=== PATIENT | female | born 1960 | race African-American/Black ===

== ENCOUNTER 2022-04-05 22:22 | Observation (INO) | payer BC, OTHER ==
[2022-04-06 00:35] LABS: BASO % 0.6 % (0-2.0); EOS % 2.5 % (0-4.5); HEMATOCRIT 42.9 % (32.4-45.2); HEMOGLOBIN 14.7 GM/dL (10.7-15.3); LYMPH % 36.5 % (8-40); MCH 28.7 pg (25.7-33.7); MCHC 34.3 g/dl (32.0-36.0); MEAN CELL VOLUME 83.6 fl (80-96); MEAN PLT VOLUME 8.2 fl (7.5-11.1); MONO % 5.3 % (3.8-10.2); NEUT % 55.1 % (42.8-82.8); PLATELET COUNT 254 10^3/uL (134-434); RBC 5.14 M/mm3 (3.60-5.2); RDW 13.3 % (11.6-15.6); WHITE BLOOD COUNT 9.7 K/mm3 (4.0-10.0)
[2022-04-06 01:07] LABS: CALCIUM 10.1 mg/dL (8.5-10.1)
[2022-04-06 01:09] LABS: ALBUMIN 4.1 g/dl (3.4-5.0); BLOOD UREA NITROGEN 14.9 mg/dL (7-18)
[2022-04-06 01:12] LABS: CREATININE 1.1 mg/dL (0.55-1.3)
[2022-04-06 01:13] LABS: BILIRUBIN,TOTAL 0.8 mg/dL (0.2-1)
[2022-04-06 03:11] LABS: CALCIUM 9.8 mg/dL (8.5-10.1)
[2022-04-06 03:12] LABS: BLOOD UREA NITROGEN 14.8 mg/dL (7-18)
[2022-04-06 03:15] LABS: CREATININE 0.9 mg/dL (0.55-1.3)
[2022-04-06] MEDS ORDERED: ENOXAPARIN NA (PORCINE) 40 MG/0.4 ML DISP.SYRIN SQ ONE (09:50)
[2022-04-06] MEDS ORDERED: LISINOPRIL 5 MG TABLET ONE (09:50)
[2022-04-06] MEDS ORDERED: LISINOPRIL 5 MG TABLET PO SCH (10:00)
[2022-04-06] MEDS: ENOXAPARIN NA (PORCINE) 40 MG/0.4 ML DISP.SYRIN SQ SCH (10:45)
[2022-04-06] MEDS: INSULIN SLIDING SCALE (NOVOLOG) 1 VIAL SQ SCH ×3 (11:55→21:45)
[2022-04-06] MEDS: LOSARTAN POTASSIUM 50 MG TABLET PO SCH (12:55)
[2022-04-06 13:21] LABS: URINE APPEARANCE CLEAR; URINE BILIRUBIN NEGATIVE (NEGATIVE); URINE COLOR YELLOW; URINE GLUCOSE (UA) 1+ (NEGATIVE); URINE KETONE NEGATIVE (NEGATIVE); URINE LEUK ESTERASE NEGATIVE (NEGATIVE); URINE NITRITE NEGATIVE (NEGATIVE); URINE PROTEIN NEGATIVE (NEGATIVE); URINE UROBILINOGEN 0.2 mg/dL (0.2-1.0)
[2022-04-07 08:12] LABS: BASO % 0.4 % (0-2.0); EOS % 2.6 % (0-4.5); HEMATOCRIT 38.1 % (32.4-45.2); HEMOGLOBIN 13.1 GM/dL (10.7-15.3); LYMPH % 50.2 % (8-40); MCH 28.9 pg (25.7-33.7); MCHC 34.5 g/dl (32.0-36.0); MEAN CELL VOLUME 83.9 fl (80-96); MEAN PLT VOLUME 8.3 fl (7.5-11.1); MONO % 5.8 % (3.8-10.2); PLATELET COUNT 226 10^3/uL (134-434); RBC 4.54 M/mm3 (3.60-5.2); RDW 13.1 % (11.6-15.6); WHITE BLOOD COUNT 7.4 K/mm3 (4.0-10.0)
[2022-04-07] MEDS: INSULIN SLIDING SCALE (NOVOLOG) 1 VIAL SQ SCH ×4 (08:20→22:35)
[2022-04-07 08:24] LABS: CALCIUM 8.9 mg/dL (8.5-10.1)
[2022-04-07 08:26] LABS: ALBUMIN 3.4 g/dl (3.4-5.0); BLOOD UREA NITROGEN 18.5 mg/dL (7-18)
[2022-04-07 08:28] LABS: CREATININE 0.7 mg/dL (0.55-1.3)
[2022-04-07 08:30] LABS: TOT PROT 6.2 g/dl (6.4-8.2)
[2022-04-07 08:31] LABS: BILIRUBIN,TOTAL 0.6 mg/dL (0.2-1)
[2022-04-07] MEDS ORDERED: LOSARTAN POTASSIUM 50 MG TABLET ONE (09:46)
[2022-04-07] MEDS ORDERED: ENOXAPARIN NA (PORCINE) 40 MG/0.4 ML DISP.SYRIN SQ ONE (09:46)
[2022-04-07] MEDS: ENOXAPARIN NA (PORCINE) 40 MG/0.4 ML DISP.SYRIN SQ SCH (10:28)
[2022-04-07] MEDS: LOSARTAN POTASSIUM 50 MG TABLET PO SCH (10:28)
[2022-04-07] MEDS: INSULIN (LEVEMIR) 100 UNITS/ML UNITS SQ SCH ×2 (15:20→22:36)
[2022-04-07] MEDS: HYDROCHLOROTHIAZIDE 25 MG TABLET (FP) PO SCH (15:25)
[2022-04-07] MEDS ORDERED: HYDROCHLOROTHIAZIDE 25 MG TABLET (FP) ONE (17:17)
[2022-04-08] MEDS ORDERED: INSULIN (LEVEMIR) 100 UNITS/ML UNITS SQ SCH ×3 (07:23→08:00)
[2022-04-08 07:53] LABS: BASO % 0.4 % (0-2.0); EOS % 2.8 % (0-4.5); HEMATOCRIT 38.6 % (32.4-45.2); HEMOGLOBIN 13.6 GM/dL (10.7-15.3); LYMPH % 52.7 % (8-40); MCHC 35.2 g/dl (32.0-36.0); MEAN CELL VOLUME 82.4 fl (80-96); NEUT % 38.1 % (42.8-82.8); PLATELET COUNT 237 10^3/uL (134-434); RBC 4.68 M/mm3 (3.60-5.2); RDW 13.2 % (11.6-15.6); WHITE BLOOD COUNT 7.1 K/mm3 (4.0-10.0)
[2022-04-08 08:15] LABS: CALCIUM 9.4 mg/dL (8.5-10.1)
[2022-04-08 08:16] LABS: ALBUMIN 3.6 g/dl (3.4-5.0); BLOOD UREA NITROGEN 19.4 mg/dL (7-18)
[2022-04-08 08:19] LABS: CREATININE 0.7 mg/dL (0.55-1.3)
[2022-04-08 08:20] LABS: BILIRUBIN,TOTAL 0.5 mg/dL (0.2-1); TOT PROT 6.5 g/dl (6.4-8.2)
[2022-04-08] MEDS: INSULIN (LEVEMIR) 100 UNITS/ML UNITS SQ SCH (08:27)
[2022-04-08] MEDS: INSULIN SLIDING SCALE (NOVOLOG) 1 VIAL SQ SCH ×2 (08:30→12:59)
[2022-04-08] MEDS ORDERED: HYDROCHLOROTHIAZIDE 25 MG TABLET (FP) ONE (09:43)
[2022-04-08] MEDS ORDERED: ENOXAPARIN NA (PORCINE) 40 MG/0.4 ML DISP.SYRIN SQ ONE (09:43)
[2022-04-08] MEDS ORDERED: LOSARTAN POTASSIUM 50 MG TABLET ONE (09:43)
[2022-04-08] MEDS: LOSARTAN POTASSIUM 50 MG TABLET PO SCH (11:00)
[2022-04-08] MEDS: ENOXAPARIN NA (PORCINE) 40 MG/0.4 ML DISP.SYRIN SQ SCH (11:00)
[2022-04-08] MEDS: HYDROCHLOROTHIAZIDE 25 MG TABLET (FP) PO SCH (11:00)
[2022-04-08 12:46] LABS: MAGNESIUM 2.1 mg/dL (1.8-2.4)
[2022-04-08 12:50] LABS: PHOSPHOROUS 4.2 mg/dL (2.5-4.9)
[2022-04-08] MEDS: INSULIN (NOVOLOG) ASPART 100 UNITS/ML 10ML VIAL SQ SCH ×2 (12:59→18:02)
[2022-04-08 14:17] VITALS: TEMP 98.5; BMI 27.8
[2022-04-08] MEDS ORDERED: INSULIN SLIDING SCALE (NOVOLOG) 1 VIAL SQ SCH (16:30)
[2022-04-08 19:05] VITALS: BP 151/81; PULSE 73; RESP 18
[2022-04-09] MEDS ORDERED: sitaGLIPtin PHOSPHATE 50 MG TABLET PO SCH (07:00)
[2022-04-09] MEDS ORDERED: INSULIN (LEVEMIR) 100 UNITS/ML UNITS SQ SCH (07:00)
[2022-04-09] MEDS ORDERED: metFORMIN HCL 500 MG TABLET (FP) PO SCH (07:00)
[2022-04-09] MEDS ORDERED: LOSARTAN POTASSIUM 50 MG TABLET PO SCH (10:00)
[2022-04-09] MEDS ORDERED: ENOXAPARIN NA (PORCINE) 40 MG/0.4 ML DISP.SYRIN SQ SCH (10:00)
[2022-04-09] MEDS ORDERED: HYDROCHLOROTHIAZIDE 25 MG TABLET (FP) PO SCH (10:00)
== END 2022-04-08 21:05 | disposition home or self-care (01) ==
LOC: JER 22:22 → UNDOADMOB 04-06 06:48 → JERBED 04-06 06:48 → OBSVTOIN 04-06 08:31 → INTOOBSV 04-06 08:31 → JERBED 04-06 17:49 → J5S 04-08 12:58
PROVIDERS: ADMIT Internal Medicine; ATTEND Internal Medicine
PROC: 3E023GC Introduction of Other Therapeutic Substance into Muscle, Percutaneous Approach (ICD-10-PCS; principal; 2022-04-06)
PROC: 3E013VG Introduction of Insulin into Subcutaneous Tissue, Percutaneous Approach (ICD-10-PCS; 2022-04-06)
DX: S09.90XA Unspecified injury of head, initial encounter (principal); I25.10 Atherosclerotic heart disease of native coronary artery without angina pectoris; E11.9 Type 2 diabetes mellitus without complications; I10 Essential (primary) hypertension; R42 Dizziness and giddiness; W18.39XA Other fall on same level, initial encounter; Y93.89 Activity, other specified; Y92.89 Other specified places as the place of occurrence of the external cause; M25.731 Osteophyte, right wrist; Z51.81 Encounter for therapeutic drug level monitoring
CPT/HCPCS: 36415; 70450-TC; 71046-TC-FY; 80048; 80053; 80061; 81003; 82962; 83036; 83735; 84100; 84439; 84443; 84484; 85025; 87086; 93005; 93010; 93306-TC; 93880-TC; 99285-25; C9803-CS; G0378; U0003; U0005

== ENCOUNTER 2023-12-05 22:35 | Emergency (ER) | payer BC ==
[2023-12-05 23:01] VITALS: BP 162/81; PULSE 75; RESP 20; TEMP 98.1; BMI 27.8
[2023-12-05] MEDS ORDERED: diphenhydrAMINE HCL 25 MG CAPSULE (FP) PO ONE (23:54)
[2023-12-06] MEDS: diphenhydrAMINE HCL 25 MG CAPSULE (FP) PO ONE (00:03)
== END 2023-12-06 00:18 | disposition home or self-care (01) ==
LOC: JER 22:35
DX: L50.9 Urticaria, unspecified (principal); L29.9 Pruritus, unspecified; R21 Rash and other nonspecific skin eruption
CPT/HCPCS: 99283-25

== ENCOUNTER 2024-03-31 07:35 | Observation (INO) | payer BC ==
[2024-03-31 08:50] LABS: BASO % 1.2 % (0-2.0); EOS % 2.4 % (0-4.5); HEMATOCRIT 42.4 % (32.4-45.2); HEMOGLOBIN 14.5 GM/dL (10.7-15.3); LYMPH % 39.9 % (8-40); MCHC 34.2 g/dl (32.0-36.0); MEAN CELL VOLUME 84.9 fl (80-96); MEAN PLT VOLUME 8.1 fl (7.5-11.1); MONO % 4.7 % (3.8-10.2); NEUT % 51.8 % (42.8-82.8); PLATELET COUNT 227 10^3/uL (134-434); RBC 4.99 M/mm3 (3.60-5.2); RDW 13.9 % (11.6-15.6); WHITE BLOOD COUNT 7.9 K/mm3 (4.0-10.0)
[2024-03-31 08:51] LABS: PH,URINE 5.5 (5.0-8.0); URINE APPEARANCE CLEAR; URINE BILIRUBIN NEGATIVE (NEGATIVE); URINE COLOR YELLOW; URINE GLUCOSE (UA) 3+ (NEGATIVE); URINE KETONE NEGATIVE (NEGATIVE); URINE LEUK ESTERASE NEGATIVE (NEGATIVE); URINE NITRITE NEGATIVE (NEGATIVE); URINE PROTEIN NEGATIVE (NEGATIVE); URINE UROBILINOGEN 0.2 mg/dL (0.2-1.0)
[2024-03-31 08:51] LABS: INR 1.04 (0.83-1.09); PROTHROMBIN TIME (PATIENT) 11.7 SEC (9.7-13.0)
[2024-03-31 08:54] LABS: ACTIVATED PTT 33.1 SECONDS (25.2-36.5)
[2024-03-31 09:09] LABS: POTASSIUM 4.2 mmol/L (3.5-5.1)
[2024-03-31 09:11] LABS: ALBUMIN 3.7 g/dl (3.4-5.0); CALCIUM 9.6 mg/dL (8.5-10.1)
[2024-03-31 09:12] LABS: BLOOD UREA NITROGEN 19.5 mg/dL (7-18)
[2024-03-31 09:14] LABS: CREATININE 0.9 mg/dL (0.55-1.3)
[2024-03-31 09:15] LABS: PHOSPHOROUS 3.1 mg/dL (2.5-4.9); TOT PROT 6.9 g/dl (6.4-8.2)
[2024-03-31 09:16] LABS: BILIRUBIN,TOTAL 0.6 mg/dL (0.2-1)
[2024-03-31] MEDS ORDERED: ATORVASTATIN CA 40 MG TABLET (FP) ONE (12:18)
[2024-03-31] MEDS ORDERED: ASPIRIN 81 MG CHEWABLE TABLETS ONE (12:18)
[2024-03-31] MEDS: ATORVASTATIN CA 40 MG TABLET (FP) PO ONE (12:22)
[2024-03-31] MEDS: ASPIRIN 81 MG CHEWABLE TABLETS PO ONE (12:22)
[2024-03-31 14:41] VITALS: BMI 26.6
[2024-03-31] MEDS: ROSUVASTATIN CA 20 MG TABLET PO SCH (21:40)
[2024-04-01] MEDS: ASPIRIN 81 MG CHEWABLE TABLETS PO SCH (11:00)
[2024-04-01] MEDS: HYDROCHLOROTHIAZIDE 12.5 MG CAPSULE (FP) PO SCH (11:00)
[2024-04-01] MEDS: LOSARTAN POTASSIUM 50 MG TABLET PO SCH (11:00)
[2024-04-01] MEDS: CLOPIDOGREL BISULFATE 75 MG TABLET (FP) PO SCH (21:57)
[2024-04-02] MEDS: ASPIRIN COATED 81 MG TABLET.EC PO SCH (09:38)
[2024-04-02 09:40] VITALS: RESP 18
[2024-04-02 15:40] VITALS: BP 154/66; PULSE 61; TEMP 98.1
== END 2024-04-02 18:47 | disposition home or self-care (01) ==
LOC: JER 07:35 → JERBED 10:44 → J4S 13:49
PROVIDERS: ADMIT Internal Medicine; ATTEND Internal Medicine
DX: G45.9 Transient cerebral ischemic attack, unspecified (principal); I16.0 Hypertensive urgency; E11.9 Type 2 diabetes mellitus without complications; R20.0 Anesthesia of skin; E78.5 Hyperlipidemia, unspecified
CPT/HCPCS: 0241U-QW; 36415; 70450-TC; 70551-TC; 80053; 80061; 81003; 82962; 83036; 83735; 84100; 84484; 85025; 85610; 85730; 86850; 86900; 86901; 87086; 93005; 93010; 93306-TC; 93880-TC; 99285-25; G0378